=== PATIENT | female | born 1960 | race Caucasian/White ===

== ENCOUNTER 2016-07-26 11:25 | Inpatient (IN) | payer MEDICARE, MEDICAID ==
[2016-07-26] VITALS (14 sets, daily range): BP systolic 129–191; BP diastolic 83–116; PULSE 86–145; RESP 15–26; O2SAT 91–100
[~2016-07-26] VITALS: Ht 157.5 cm; Wt 87.5 kg
[~2016-07-26 11:25] MED LIST: Ondansetron 2 mg/mL 2 mL Inj ONE; Rocuronium 10 mg/mL 5 mL Inj ONE; fentaNYL-PF 50 mCg/mL 2 mL Inj ONE
--- NOTE | 2016-07-26 11:47 | ED.REPORT ---
HPI-Rash / Abscess Date of Service Jul 26, 2016 ED Provider: Dr. Coats Pt is a healthy 56 y/o female presenting to the ED c/o worsening abscess on right buttock onset 1 week ago. She c/o associated pain over the affected area. She denies fever, chills, diaphoresis. She saw her PCP regarding this previously who lanced it. It does not appear to be healing well and pain has increased. Nothing but clear liquid today to eat/drink. Nursing Notes Stated Complaint: ABSCESS ON ABDOMEN Chief Complaint: Skin Rash/Abscess Nursing Notes Reviewed: Yes Allergies: Coded Allergies: No Known Allergies (Unverified , 07/26/16) General Time Seen by MD: 11:46 Chief Complaint Abscess Hx Obtained From: Patient Arrived By: Walk-in Onset Occurred: 1 week ago Symptom Duration: Since onset Location: : Buttock Quality: Painful Severity: Current: Moderate Severity: Maximum: Moderate Past Medical History Past Medical History Denies Past Surgical History None reported Smoking History Unknown if Ever Smoker Ambulatory Status Independent Review of Systems Constitutional: Denies: Chills, Fever Respiratory: Denies: Non-productive cough, Shortness of breath Cardiovascular: Denies: Chest pain, Dyspnea on exertion GI: Denies: Abdominal pain, Nausea, Vomiting Skin: Denies Diaphoresis Complete sys rev & neg: except as marked. Physical Exam Initial Vital Signs Vital Signs (First) Date Time Temp Pulse Resp B/P Pulse Ox O2 Delivery O2 Flow Rate FiO2 07/26/16 11:34 35.4 145 26 91 Room Air 07/26/16 13:11 147/83 Initial VS: Reviewed, Vital signs abnormal Head / Eyes: Atraumatic, Normocephalic, PERRL ENT: Mucous membranes moist, Conjunctiva normal, No scleral icterus Neck: Supple, Full range of motion Respiratory: Breath sounds normal, Clear to auscultation, No respiratory distress Cardiovascular: Regular rate & rhythm, Heart sounds normal, Intact distal pulses Extremities: Vascular intact, Neuro intact, No swelling, No tenderness Neurologic: Alert, Oriented, Nonfocal Psychiatric: Mood/affect normal, Behavior normal, Normal thought content General/Constitutional: Awake, Alert, No acute distress, Cooperative, Not toxic appearing Appearance / Presentation: Positive: Uncomfortable Skin: Atraumatic, Color NL Right buttock perirectal abscess 20 cm x 5 cm which is indurated, erythematous, very tender, extending to the verge of anus. There is an area of previous I&D about the superior aspect with small tag of new packing gauze which I removed. Interpretation & Diagnostics Lab Results Interpretation Result Diagram: 07/26/16 1208 07/26/16 1208 Test 07/26/16 12:08 07/26/16 12:16 White Blood Count 11.3th/mm3 (3.8-10.1) Red Blood Count 5.01mil/mm3 (3.90-5.20) Hemoglobin 14.6g/dL (12.0-15.6) Hematocrit 42.7% (35.0-46.0) Mean Corpuscular Volume 85.2fL (81-100) Mean Corpuscular Hemoglobin 29.1pg (27.0-35.0) Mean Corpuscular Hemoglobin Concent 34.2% (32.0-37.0) Red Cell Distribution Width 12.9% (12.3-15.4) Platelet Count 301bil/L (150-400) Neutrophils (%) (Auto) 78.0% (40-74) Lymphocytes (%) (Auto) 11.5% (14-46) Monocytes (%) (Auto) 7.0% (4-12) Eosinophils (%) (Auto) 1.1% (0-5) Basophils (%) (Auto) 0.4% (0-3) Sodium Level 127mEq/L (134-144) Potassium Level 4.4mEq/L (3.5-5.2) Chloride Level 88mEq/L (97-108) Carbon Dioxide Level 21mmol/L (18-29) Blood Urea Nitrogen 15mg/dL (6-24) Creatinine 1.09mg/dL (0.57-1.00) Estimat Glomerular Filtration Rate 74mL/min (>59) Glucose Level 466mg/dL (60-99) Calcium Level 9.4mg/dL (8.5-10.1) Total Bilirubin 0.5mg/dL (0.0-1.2) Aspartate Amino Transf (AST/SGOT) 25U/L (0-50) Alanine Aminotransferase (ALT/SGPT) 25U/L (0-32) Alkaline Phosphatase 68U/L (25-150) Total Protein 8.1g/dL (6.4-8.4) Albumin 3.4g/dL (3.4-5.0) Lipase 15U/L (13-60) Hold Forbes Top Tube Received (Received) Re-Eval/Medical Decision Re-Evaluation/Progress : Time of Eval: 12:00 Re-Evaluation/Progress Note: Pt rechecked. Informed pt of need for admission for surgical intervention. Pt understands and agrees with plan for admission. All questions addressed. Consultation #1: Referral / Consult Name: Tejas Smith MD Consulted With: Surgeon Call Returned at: 12:00 Clay Artist: Will see patient, Agrees with eval, Agrees with plan Note: Will perform surgery later today or possibly early tomorrow. Requests be admitted to hospitalist for now. Consultation #2: Referral / Consult Name: Flakita Kumar DO Consulted With: Hospitalist Call Returned at: 13:20 Clay Artist: Accepts admit Counseled Regarding: Diagnosis, Lab results, Need for admission Discharge & Departure Impression: Primary Impression: Perirectal abscess Additional Impression: Hyperglycemia Disposition: ADMITTED TO HOSPITAL Discharge Condition All VS Reviewed: Yes Condition: Stable Scribe Attestation Portions of this note were transcribed by Trell Rivero. I, Dr. Coats personally performed the history, physical exam and medical decision-making; I reviewed and confirmed the accuracy of the information in the transcribed note. Signed by Trell Rivero and James Allison, 07/26/16 - 1200 Porter Coats MD Jul 26, 2016 11:47 TRELL RIVERO Jul 26, 2016 11:52
[2016-07-26] MEDS ORDERED: 0.9% Sodium Chloride 1,000 ML IV ONE (12:08)
[2016-07-26] MEDS ORDERED: Ondansetron 2 mg/mL 2 mL Inj IVPUSH PRN ×5 (12:10→16:15)
[2016-07-26] MEDS ORDERED: HYDROmorphone 1 mg/mL Inj IVPUSH PRN (12:10)
[2016-07-26] MEDS ORDERED: Acetaminophen IV 1,000 MG in IV Premix 1 EACH IV ONE (12:15)
[2016-07-26 12:28] LABS: BASOPHILS % (AUTO) 0.4 % (0-3); EOSINOPHILS % (AUTO) 1.1 % (0-5); Mean Corpuscular Hemoglobin 29.1 pg (27.0-35.0); Mean Corpuscular Volume 85.2 fL (81-100); Platelet Count 301 bil/L (150-400)
[2016-07-26] MEDS ORDERED: SULF1TAB7 PO (13:54)
[2016-07-26] MEDS ORDERED: IBUP200C11 PO (13:54)
[2016-07-26] MEDS ORDERED: HOLY BASIL PO (13:54)
[2016-07-26] MEDS ORDERED: TRAM-14 PO (13:54)
[2016-07-26] MEDS ORDERED: Alum-Mag Hydrox-Simeth 30 mL Suspension PO PRN ×2 (13:55→15:05)
--- NOTE | 2016-07-26 14:16 | NUR ---
Admit nurse note Admission assessment completed in the ER. Pt. denies complaints at present, her pain is tolerable at stated 3/10 and she transfers to and from stretcher easily as long as she does not sit directly on her rectum. Pt. confirms NKA and health history. Pt. oriented to room, call dockery and fall precautions. Report given to Tc TRUONG.
[2016-07-26] MEDS ORDERED: Lactated Ringer's 1,000 ML IV ONE ×2 (14:28→15:24)
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
[2016-07-26] MEDS ORDERED: Polyethylene Glycol (PEG) 17 Gm Powder PO PRN (15:05)
[2016-07-26] MEDS ORDERED: Insulin Human REGular Inj 100 UNIT in 0.9% Sodium Chloride-Pha MIX 100 ML IV SCH (15:19)
[2016-07-26] MEDS ORDERED: Labetalol 5 mg/mL 4 mL Inj IVPUSH ONE (15:20)
--- NOTE | 2016-07-26 15:25 | PCM.ADCARE ---
Advance Care Planning Note Parties in Attendance: Patient, her mother (Edilia), and aunt (Yajaira Rajput) and Dr. Kumar Decisional Capacity: Good Subjective: goals of care Plan: Patient is currently aware of her medical condition. Patient wishes to be placed on full CODE STATUS. Patient agrees to have CPR and intubation with mechanical ventilation, IV fluids, antibiotics, and blood transfusions. CODE STATUS: Full code Time Spent Adv.Care Plannin minutes Flakita Kumar DO Jul 26, 2016 14:50
--- NOTE | 2016-07-26 15:42 | NUR ---
Admit to [facility] Pt. admitted [facility] at 1425 in stable condition. Family present. Pt. walked from [facility] to hospital bed. Steady gait. Oriented to room and call light. C/o 4/10 pain. States it is tolerable. Vitals taken, pt. hypertensive 180s/100s. present and aware. BG elevated in ED, so we rechecked it at 1515. BG 316. Dr. Smith called to order an insulin gtt to be set up. Areli from OR called at 1520 for report on pt. Transport came at 1525 to transfer pt. to OR. Pharmacy to tube insulin to OR to be set up.
[2016-07-26] MEDS ORDERED: CeFAZolin Inj 3 GM in IV Premix 1 EACH IV ONE (16:05)
[2016-07-26] MEDS ORDERED: Lactated Ringer's 500 ML IV PRN (16:11)
[2016-07-26] MEDS ORDERED: Lactated Ringer's 1,000 ML IV SCH (16:11)
[2016-07-26] MEDS ORDERED: Dexamethasone 4 mg/mL Inj IVPUSH PRN (16:15)
[2016-07-26] MEDS ORDERED: fentaNYL-PF 50 mCg/mL 2 mL Inj IVPUSH PRN (16:15)
[2016-07-26] MEDS ORDERED: EPHEDrine Sulfate 50 mg/mL Inj IVPUSH PRN (16:15)
[2016-07-26] MEDS ORDERED: hydrALAZINE 20 mg/mL Inj IVPUSH PRN (16:15)
[2016-07-26] MEDS ORDERED: Labetalol 5 mg/mL 4 mL Inj IV PRN (16:15)
[2016-07-26] MEDS ORDERED: Phenylephrine 10,000 mCg/mL Inj IVPUSH PRN (16:15)
[2016-07-26] MEDS ORDERED: Atropine 0.4 mg/mL Inj IVPUSH PRN (16:15)
--- NOTE | 2016-07-26 16:54 | PCM.ANEP1 ---
Post Anesthesia Phase 1 PACU Phase 1 Assessment Vital Signs Vital Signs Date Time Temp Pulse Resp B/P Pulse Ox O2 Delivery O2 Flow Rate FiO2 07/26/16 14:26 36.7 100 16 182/102 96 Room Air 07/26/16 13:11 103 16 147/83 95 Room Air 07/26/16 11:34 35.4 145 26 91 Room Air Anesthetic Administered: GA Level of Alertness: Awake, talking MARTINEZ's with Equal Strength: Yes Pain: Yes (paiun with movement) Nausea or Vomiting: No Oxygen Delivery: Simple Mask Lungs: Normal Air Movement Guillaume Arteaga MD Jul 26, 2016 16:54
[2016-07-26] MEDS ORDERED: fentaNYL-PF 50 mCg/mL 2 mL Inj ONE (17:03)
[2016-07-26] MEDS: HYDROmorphone 1 mg/mL Inj IVPUSH PRN ×3 (17:12→20:13)
[2016-07-26] MEDS ORDERED: Lactated Ringer's 500 ML IV ONE (18:00)
[2016-07-26] MEDS ORDERED: Ampicillin-Sulbactam Inj 1,500 MG in 0.9% Sodium Chloride 50 ML IV SCH (18:00)
[2016-07-26] MEDS: 0.9% Sodium Chloride 1,000 ML IV SCH ×2 (18:59→23:54)
[2016-07-26] MEDS: Acetaminophen IV 1,000 MG in IV Premix 1 EACH IV PRN (22:10)
--- NOTE | 2016-07-26 22:37 | CONS ---
[address] [address] CONSULTATION REPORT PATIENT: YADI BENITEZ : 1960 MR#: [id number] ADMIT: 07/26/2016 JOB ID: [id number] DATE OF SERVICE: 07/26/2016 CHIEF COMPLAINT: Right buttock abscess. HISTORY OF PRESENT ILLNESS: The patient is a 56-year-old female, who presented to the emergency department today due to a worsening right buttock abscess. The patient states that this has been going on for the past 10 days or so. It spontaneously drained this past Saturday, which is four days ago, and then she presented to the urgent care at [place] and underwent an I and D two days ago. The patient was given a shot of IV antibiotics, and she was maintained on p.o. Bactrim. Patient returned to the urgent care today for a followup and was quickly referred to the emergency department. The patient complains of continuous drainage and pain. I was consulted by Dr. Porter Coats for evaluation. PAST MEDICAL HISTORY: Left femur surgery, left knee surgery, and left hip surgery. MEDICATIONS: Advil and Bactrim. ALLERGIES: None. SOCIAL HISTORY: The patient lives in [place]. She is single. She does not have any children. She is on disability. FAMILY HISTORY: Positive for diabetes and heart disease. REVIEW OF SYSTEMS: Positive for the pain and draining right buttock abscess. The patient denies any fevers or chills. PHYSICAL EXAMINATION: The patient is currently in the emergency department [facility] in no acute distress. Her BMI is 58.5, her temperature is 35.4, her pulse is 145. Head is normocephalic, atraumatic. There is no scleral icterus. Neck is supple. Heart is regular rate. Lungs are clear. Abdomen is obese, but soft. INCOMPLETE DICTATION: DICTATION ENDS HERE.
--- NOTE | 2016-07-26 22:43 | CONS ---
[address] [address] CONSULTATION REPORT PATIENT: YADI BENITEZ : 1960 MR#: [id number] ADMIT: 07/26/2016 JOB ID: [id number] DATE OF SERVICE: 07/26/2016 CHIEF COMPLAINT: Right buttock abscess. HISTORY OF PRESENT ILLNESS: The patient is a 56-year-old female who presented to the emergency department with a right buttock abscess. It has been going on for the past 10 days or so, and it has spontaneously drained approximately four days ago. Two days ago she presented to the urgent care at [place] and she underwent an I and D there and she was given a dose of ceftriaxone and was maintained on Bactrim p.o. Patient returned to the urgent care this morning for a followup and was quickly referred to the emergency department. I was consulted by Dr. Porter Coats for evaluation. The patient reports persistent drainage of purulence and worsening pain. PAST MEDICAL HISTORY: Includes left femur surgery, left knee surgery and left hip surgery. MEDICATIONS: 1. Advil. 2. Bactrim. ALLERGIES: None. SOCIAL HISTORY: The patient lives in [place]. She is single. She does not have any children. She is on disability. FAMILY HISTORY: Positive for diabetes and heart disease. REVIEW OF SYSTEMS: Positive for the draining right buttock abscess. She denies any fevers or chills. PHYSICAL EXAMINATION: The patient is currently on the emergency department [facility] in no acute distress. Her BMI is 58.5, she is afebrile with a temperature of 35.4. Head is normocephalic, atraumatic. There is no scleral icterus. Neck is supple. Heart is regular rate. Lungs are clear. Abdomen is obese, but soft and nontender. Extremities show no clubbing and no cyanosis. Neurologically, she is awake, and appropriate. Examination of her right buttock shows there is a small hole with obvious drainage of brown purulence with surrounding induration and erythema and tenderness. It is at least the size of a silver dollar. LABORATORY EXAMINATION: Today shows a white blood count of 11.3. ASSESSMENT AND PLAN: This is a 56-year-old female with a worsening right medial buttock abscess. She has failed incision and drainage two days ago by urgent care. We will take the patient to the operating room today for a wider I and D today. This was explained to the patient and the patient understands and wishes to proceed. She should receive IV antibiotics as well.
[2016-07-27 00:32] VITALS: BP 147/78; PULSE 94; RESP 20; O2SAT 99
--- NOTE | 2016-07-27 02:22 | OP ---
[address] [address] OPERATIVE REPORT PATIENT: YADI BENITEZ : 1960 MR#: [id number] ADMIT: 07/26/2016 JOB ID: [id number] DATE OF SURGERY: 07/26/2016 SURGEON: Tejas Smith MD. CONE PICKER: Aaln Abel, resident. ANESTHESIA: General. PREOPERATIVE DIAGNOSIS(ES): Right medial buttocks abscess. POSTOPERATIVE DIAGNOSIS(ES): Right medial buttocks abscess. PRINCIPAL PROCEDURE: Incision and drainage of right medial buttocks abscess. INDICATION FOR PROCEDURE: The patient is a 56-year-old female who has had a right medial buttocks abscess for the past 10 days or so. This was I and D'd two days ago at urgent care. PRINCIPAL FINDING: Fairly large right-sided medial buttocks abscess. The entire incision measured at least 12 cm. PROCEDURE COURSE: The patient was brought to the operating table and was provided with general anesthesia. The patient was given IV antibiotics and SCDs. A time-out was performed. Patient's sugar earlier today was in the 400s, and it had come down to the 300s just before the operation. A time-out was performed. Patient's perianal and buttocks region was then prepped and draped in the usual sterile fashion. Next, using a syringe and 18-gauge needle, aspiration of the indurated right medial buttocks region was performed and aspirated pus was then sent for cultures. Next, at the prior I and D site we extended the incision in a longitudinal fashion to encompass the entire indurated area. The entire incision was approximately 12 cm in length. The abscess cavity was unroofed. Additional probing with finger and also using a Leandra clamp was performed to make sure that there was no undrained abscess. Copious irrigation with saline was performed and hemostasis was controlled using cautery. A finger was placed into the anal canal and the abscess cavity did not communicate with the anal canal. Next, the wound cavity itself was then packed with Kerlix gauze soaked in half-strength Betadine. A sterile dressing was then placed over the wound. By the end of procedure, needle counts and sponge counts were correct. The patient was then extubated and taken back to the recovery room in stable satisfactory condition.
[2016-07-27] MEDS: Ampicillin-Sulbactam Inj 1,500 MG in 0.9% Sodium Chloride 50 ML IV SCH ×4 (03:01→21:21)
[2016-07-27] MEDS: HYDROmorphone 1 mg/mL Inj IVPUSH PRN ×4 (03:10→17:27)
--- NOTE | 2016-07-27 03:42 | NUR ---
Activity/BG/ Pain Pain manageable with available PRN's. Patient able to ambulate without complaint, besides a lone complaint of dizziness when changing ABD pad of dressing. BG within range for 6 consecutive hours. Have been monitoring it every other hour, after 4 consecutive numbers within range. Dressing has moderate serous drainage this shift.
[2016-07-27] MEDS: Acetaminophen IV 1,000 MG in IV Premix 1 EACH IV PRN (04:29)
[2016-07-27 05:55] VITALS: BP 139/84; PULSE 87; RESP 20; O2SAT 97
[2016-07-27 06:45] LABS: Mean Corpuscular Hemoglobin 29.1 pg (27.0-35.0); Mean Corpuscular Volume 87.9 fL (81-100)
--- NOTE | 2016-07-27 06:59 | PCM.ANEP2 ---
Post Anesthesia Evaluation ASA/CMS Post Anesthesia VS in Patient's Normal Range?: Yes Resp Stable; Airway Patent?: Yes CV Function & Hydration Stable: Yes Mental Status Recovered?: Yes Pain control Satisfactory?: Yes N/V Control Satisfactory?: Yes Guillaume Arteaga MD Jul 27, 2016 06:59
--- NOTE | 2016-07-27 10:00 | PCM.PNSURG ---
Subjective Date of Service: Jul 27, 2016 Date of Service: Jul 27, 2016 Visit Information: Reason for Visit Perirectal Abscess Surgery/Surgery Date Post-Op Day # Date of Admission: Jul 26, 2016 at 13:51 Hospital Day # Subjective: Patient states pain well controlled for now. Denies nausea, vomiting, constipation, diarrhea, chest pain, shortness of breath. Objective Objective GEN: Patient was awake, alert, responding appropriately to questions HEENT: Pupils equal round and reactive to light, extraocular eye muscles intact , Neck soft supple, trachea midline, nomocephalic/atraumatic CV: +S1/S2, regular rate and rhythm, no murmurs auscultated Respiratory: CTAB, no wheezes, rales, rhonchi GI: +bowel sounds x4, soft, compressible, nontender to palpation, 1/2 cm perianal abscess EXT: no clubbing, cyanosis, edema Neuro: Cranial nerves II-XII grossly intact Psych: mood and affect were appropriate Incision site was examined and there was minimal drainage, wound open roughly 13 cm x 4 cm x 4 cm with packing and bandaging in place and marginal erythema and edema. several small indurations superior and lateral to incision sites noted. Will coordinate with wound care for a more thorough exam. Vital Sign- Last 8 Hours Date Time Temp Pulse Resp B/P Pulse Ox O2 Delivery O2 Flow Rate FiO2 07/27/16 05:55 36.5 87 20 139/84 97 Room Air Intake and Output- Last 8 Hour 07/27/16 Cumulative From/Thru 07:00 07/26/16 11:34 - 07/27/16 06:44 Intake Total 1091 ml 3441 ml Output Total 0 ml Balance 1091 ml 3441 ml Intake Oral 200 ml 400 ml IV Total 891 ml 3041 ml Output Urine Total 0 ml # Voids 1 1 # Bowel Movements 0 0 Result Diagram: 07/27/16 0558 07/27/16 0558 Assessment & Plan Impression Incision and drainage of right medial buttocks abscess. Problems: Plan The patient is a 56-year-old female who has had a right medial buttocks abscess for the past 10 days or so. This was I&D'd two days ago at urgent care with small stab incision. Continue post I&D management. - IV Dilaudid for dressing change. - IV acetaminophen for now. - Awaiting cx and sensitivities from I&D. Currently on IV Unasyn, however outpatient records at urgent care 07/24/16 shows MRSA positive. Will start IV Vancomycin. - WBC wnl, Wound care following. - Will coordinate with wound care today for detailed examination and plan. Medicine team following. - HA1c 10 .9. admission BS was above 400, on insulin ggt for control. Patient states she is not diabetic and has been under stress lately. Ddx - DM 1/2, Patricia's... - Social work referral. Patient is primary caregiver assisted living to elderly mother. - Diabetic diet. Resuscitation Status: CPR: Attempt Resuscitation Attending Statement: I agree with Dr. Christina's assessment and plan. Abx and Wound Care and blood sugar control. ASHLEY CHRISTINA DO Jul 27, 2016 09:46 Tejas Smith MD Jul 28, 2016 10:16
[2016-07-27 10:29] VITALS: BP 164/83; PULSE 108; RESP 18; O2SAT 98
--- NOTE | 2016-07-27 12:19 | PCM.CONPHA ---
Subjective Reason for Pharmacy Consult: Vancomycin Dosing Objective Vital Signs Date Time Temp Pulse Resp B/P Pulse Ox O2 Delivery O2 Flow Rate FiO2 07/27/16 10:29 36.7 108 18 164/83 98 Room Air 07/27/16 05:55 36.5 87 20 139/84 97 Room Air 07/27/16 00:32 36.5 94 20 147/78 99 Room Air 07/26/16 20:08 36.6 101 16 157/98 Nasal Cannula 2.00 100 07/26/16 18:23 36.3 100 18 191/116 Nasal Cannula 2.00 98 07/26/16 18:00 91 19 169/97 100 Nasal Cannula 3 07/26/16 17:50 88 15 184/87 100 Nasal Cannula 3 07/26/16 17:40 86 16 178/87 100 Nasal Cannula 3 07/26/16 17:30 88 20 164/89 100 Nasal Cannula 3 07/26/16 17:20 86 15 152/88 97 Nasal Cannula 3 07/26/16 17:10 91 20 158/90 98 Room Air 07/26/16 17:00 92 17 136/100 98 Room Air 07/26/16 16:55 93 16 129/86 98 Simple Mask 8 07/26/16 16:54 Simple Mask 07/26/16 16:50 36.1 91 18 146/88 98 Simple Mask 8 07/26/16 14:26 36.7 100 16 182/102 96 Room Air 07/26/16 13:11 103 16 147/83 95 Room Air Intake and Output 07/25/16 07/26/16 07/27/16 00:00 00:00 00:00 Intake Total 2350 ml Output Total 0 ml Balance 2350 ml Weight (Kilograms): 87.500 Height (Feet): 5 Height (Inches): 2 Test 07/26/16 12:08 07/26/16 12:16 07/27/16 05:58 Neutrophils (%) (Auto) 78.0% (40-74) Lymphocytes (%) (Auto) 11.5% (14-46) Monocytes (%) (Auto) 7.0% (4-12) Eosinophils (%) (Auto) 1.1% (0-5) Basophils (%) (Auto) 0.4% (0-3) Lipase 15U/L (13-60) Hold Forbes Top Tube Received (Received) White Blood Count 8.5th/mm3 (3.8-10.1) Red Blood Count 4.22mil/mm3 (3.90-5.20) Hemoglobin 12.3g/dL (12.0-15.6) Hematocrit 37.1% (35.0-46.0) Mean Corpuscular Volume 87.9fL (81-100) Mean Corpuscular Hemoglobin 29.1pg (27.0-35.0) Mean Corpuscular Hemoglobin Concent 33.2% (32.0-37.0) Red Cell Distribution Width 12.9% (12.3-15.4) Platelet Count 281bil/L (150-400) Sodium Level 136mEq/L (134-144) Potassium Level 4.4mEq/L (3.5-5.2) Chloride Level 99mEq/L (97-108) Carbon Dioxide Level 26mmol/L (18-29) Blood Urea Nitrogen 14mg/dL (6-24) Creatinine 0.70mg/dL (0.57-1.00) Estimat Glomerular Filtration Rate 123mL/min (>59) Glucose Level 158mg/dL (60-99) Calcium Level 8.6mg/dL (8.5-10.1) Total Bilirubin 0.3mg/dL (0.0-1.2) Aspartate Amino Transf (AST/SGOT) 19U/L (0-50) Alanine Aminotransferase (ALT/SGPT) 18U/L (0-32) Alkaline Phosphatase 49U/L (25-150) Total Protein 6.2g/dL (6.4-8.4) Albumin 2.8g/dL (3.4-5.0) Assessment/Plan Assessment/Plan VANCOMYCIN DOSING PER PHARMACY 56 Y/O Female with perirectal abscess and history of MRSA also on Unasyn goal vanco trough: 10-15, scheduled for 07/29 1200 (before 5th dose) vanco dose 1.25G Q 12H pharmacy will follow patient for vanco dosing Maria Ines Castillo Pharm.D Jul 27, 2016 12:19
[2016-07-27] MEDS: Vancomycin Dose per Pharmacist XX SCH (12:57)
[2016-07-27] MEDS: 0.9% Sodium Chloride 1,000 ML IV SCH ×2 (12:59→19:54)
[2016-07-27] MEDS: Vancomycin Inj 1,250 MG in 0.9% Sodium Chloride 250 ML IV SCH (13:01)
--- NOTE | 2016-07-27 13:25 | NUR ---
DM II diagnosis A1C checked this morning r/t high BG levels at admit. Hemoglobin A1C of 10.9. MD present to talk to her about diabetes and treatment. Pt. is very upset and tearful, saying that she doesnt have diabetes and that her high blood sugars are from stress and drinking lots of grape juice. Later, when PA came to address her diabetes, pt. did not want to hear any information and became tearful and upset. I offered to have the intranet specialist come talk with her, but she said she would prefer a friend to come instead. Will continue to monitor readiness for education.
[2016-07-27 15:09] VITALS: BP 154/89; PULSE 98; RESP 18; O2SAT 97
--- NOTE | 2016-07-27 16:02 | NUR ---
Wound Care Wound Care orders received, patient seen at bedside for dressing change. 56 yo female 1 day s/p I&D of right buttock abscess, prior to dressing change nursing administered iv pain medication, pt's disabled mother was present as she is willing to do dressing changes on discharge. I do not believe this is a good plan and patient would be better off with home health for wound care and follow up at the wound center but apparently there are insurance obstacles to this plan. Her right buttock wound is impressive measuring 12 cm in length and 4.5 cm in width and 4 cms in depth the medial border of her wound is less than 4 cms from her anus. The wound is cleaned with saline and gauze and then packed with saline moist kerlix and covered with abd pad held in place with her cotton briefs. Patient tolerated treatment well. Recommend that nursing change wound dressing daily during her hospitalization. Wound will follow up on Saturday if patient is still in house.
--- NOTE | 2016-07-27 16:28 | NUR ---
Social Work Note: Screen Note Data & Assessment: EMR reviewed. Patient is a 56 year old female admitted on 07/26/16 for Perirectal abscess. Pt has no insurance coverage and no primary care physician. Pt lives in [place] with family and is independent at baseline. Pt is currently SBA in her room. Patient is in need of home WC, but does not have insurance. SW call [facility] and they do not have any opening for [facility] at the current time. SW referred patient to [facility] to be accessed fo medicaid. SW to continue to follow if any needs arise. Plan: Anticipated discharge home via POV when medically ready. SW to continue to follow if any needs arise. Roseann Katz, [place], ESTEFANY
--- NOTE | 2016-07-27 16:32 | PCM.PNMED ---
Subjective Date of Service Jul 27, 2016 Subjective Patient was seen and examined at bedside today. Patient denies any chest pain, shortness of breath, nausea, vomiting, diarrhea. Patient states that her pain is well controlled. The patient was rate tearful today as she was told that she does have diabetes. The patient is in a little bit of denial and states that her high blood glucoses secondary to stress even though her hemoglobin A1c is 10. Overnight events: Patient had an incision and drainage yesterday of a gluteal abscess with no complications Exam Vital Signs Vital Sign - Last Date Time Temp Pulse Resp B/P Pulse Ox O2 Delivery O2 Flow Rate FiO2 07/27/16 15:09 36.8 98 18 154/89 97 Room Air 07/26/16 20:08 2.00 100 Intake and Output 07/26/16 07/26/16 07/27/16 Cumulative From/Thru 15:00 23:00 07:00 07/26/16 11:34 - 07/27/16 06:44 Intake Total 1000 ml 1350 ml 1091 ml 3441 ml Output Total 0 ml 0 ml Balance 1000 ml 1350 ml 1091 ml 3441 ml Intake Oral 200 ml 200 ml 400 ml IV Total 1000 ml 1150 ml 891 ml 3041 ml Output Urine Total 0 ml 0 ml # Voids 1 1 # Bowel Movements 0 0 Exam Physical Exam: GEN: Patient was awake, alert, responding appropriately to questions HEENT: Pupils equal round and reactive to light, extraocular eye muscles intact , Neck soft supple, trachea midline, nomocephalic/atraumatic CV: +S1/S2, regular rate and rhythm, no murmurs auscultated Respiratory: CTAB, no wheezes, rales, rhonchi GI: +bowel sounds x4, soft, compressible, nontender to palpation Skin: Gluteal abscess dressing in place mildly blood-tinged EXT: no clubbing, cyanosis, edema Neuro: Cranial nerves II-XII grossly intact Psych: mood and affect were appropriate IVs and Medications Medications Reviewed: Medications were reviewed in detail Lab and Diagnostics Result Diagram: 07/27/1655707/27/16557 Assessment & Plan 56-year-old female with perianal abscess unresponsive to antibiotics and outpatient I&D and hyperglycemia Leukocytosis secondary to Perianal abscess (resolved) -White blood cell count today is 8.5 within normal limits -Continue Unasyn -Start vancomycin -Outpatient records review showed that the patient is MRSA positive -General surgery following Dr. Abel. Case was discussed with Dr. Abel today -Wound care following New onset diabetes -Patient's blood glucose was 466 on admission currently trending down at 158 -Discontinue insulin drip -Accu-Cheks per protocol -Hemoglobin A1c is 10.9 and patient has been diagnosed with diabetes -Start metformin 500 mg twice a day -Diabetes education consult nutrition Hypertension -Current blood pressure is 154/89 improved -1 time dose of IV labetalol 20 mg (07/26/16) -Start lisinopril 5 mg daily -Continue to monitor Hyponatremia (resolved) -Patient's sodium is currently 136 -Discontinue IV fluids -Continue to monitor Obesity -Nutrition consult -Continue diabetic diet Diet: Diabetic diet DVT prophylaxis: Ambulation SCD's Disposition: The patient has a gluteal abscess which is MRSA positive. The patient has also recently been diagnosed with diabetes and hypertension during the stay. The patient is very tearful and reluctant to accept these diagnoses however has been accepting treatment. We will continue to talk and educated the patient. The patient does have some concerns that she does not have insurance at this time. Social work is working with the patient and is potentially looking into sources to see if the patient will qualify for Medicaid as a patient will definitely need home health services to assist with dressing changes and wound packing. Code Status: Full code VTE Mechanical Devices: Intermittant Pneumatic CD Resuscitation Status: CPR: Attempt Resuscitation Flakita Kumar DO Jul 27, 2016 16:32
--- NOTE | 2016-07-27 17:46 | NUR ---
spiritual care: pt request brief visit. pt just rec dinner and declined visit for now.
[2016-07-27 20:12] VITALS: BP 169/92; PULSE 105; RESP 20; O2SAT 98
[2016-07-28] MEDS: HYDROmorphone 1 mg/mL Inj IVPUSH PRN ×2 (01:13→14:40)
[2016-07-28] MEDS: Vancomycin Inj 1,250 MG in 0.9% Sodium Chloride 250 ML IV SCH ×2 (01:17→16:00)
[2016-07-28] MEDS: Ampicillin-Sulbactam Inj 1,500 MG in 0.9% Sodium Chloride 50 ML IV SCH ×4 (03:18→20:33)
--- NOTE | 2016-07-28 03:25 | NUR ---
Pain/Drainage Pt. reported severe pain during one part of the night. IV Dilaudid given which was effective. Pt. fell asleep afterwards. Small amount of drainage coming from buttocks. Will continue to monitor.
[2016-07-28] MEDS: 0.9% Sodium Chloride 1,000 ML IV SCH ×2 (05:54→15:54)
[2016-07-28 06:13] VITALS: BP 152/78; PULSE 87; RESP 18; O2SAT 96
[2016-07-28 07:33] LABS: Mean Corpuscular Hemoglobin 29.7 pg (27.0-35.0)
[2016-07-28] MEDS: Vancomycin Dose per Pharmacist XX SCH (07:35)
--- NOTE | 2016-07-28 08:04 | PCM.PNSURG ---
Subjective Visit Information: Reason for Visit Perirectal Abscess Surgery/Surgery Date Post-Op Day # Date of Admission: Jul 26, 2016 at 13:51 Hospital Day # Subjective: pain control fine, no n/v, was seen by Wound Care yesterday Objective Objective Awake in bed Abd: soft R buttock dressing in place Cx --> likely staph Vital Sign- Last 8 Hours Date Time Temp Pulse Resp B/P Pulse Ox O2 Delivery O2 Flow Rate FiO2 07/28/16 06:13 36.8 87 18 152/78 96 Room Air Intake and Output- Last 8 Hour 07/28/16 Cumulative From/Thru 07:00 07/26/16 11:34 - 07/28/16 06:14 Intake Total 882 ml 5591 ml Output Total 0 ml Balance 882 ml 5591 ml Intake Oral 437 ml 1681 ml IV Total 445 ml 3910 ml Output Urine Total 0 ml # Voids 3 7 # Bowel Movements 2 2 Result Diagram: 07/28/16 0647 07/27/16 0558 Assessment & Plan Impression s/p R buttock abscess I & D DM Problems: Plan Await cx result Need to formulate plan for Wound Care at home Abx Blood sugar control Resuscitation Status: CPR: Attempt Resuscitation Tejas Smith MD Jul 28, 2016 08:04
--- NOTE | 2016-07-28 10:00 | NUR ---
Lisinopril Pt was changed from 5mg to 10mg po of lisinopril. Pt was already given 5mg of lisinopril before the med was increased therefore, gave pt 5mg of the ordered 10mg to equal a total of 10mg of lisinopril .
--- NOTE | 2016-07-28 10:47 | NUR ---
Behavior/acceptance Pt appears to deflect every time the underwriter mortgage loan tries to talk to her about diabetes. This RN gave her handouts that pt would not even look at, instead she states that "I have been under a lot of stress, that's why my blood sugars are high" This RN tried to explain the pathophysiology of diabetes but patient did not believe that her pancreas was not giving her enough insulin to control her blood sugars. Pt was in tears and said that "no one listens to me, I just want to go home" she believes she can just eat the way she has been, continue her walks and that her blood sugars will be fine, despite having an A1C of 10. Explaiend to patient the side effects of high blood sugar would be infection, blindness, kidney failure and neuropathy, pt did not want to hear anything about them though. Will continue to re-approach the subject with patient.
[2016-07-28 14:58] VITALS: BP 149/89; PULSE 105; RESP 20; O2SAT 100
--- NOTE | 2016-07-28 15:14 | PCM.PNMED ---
Subjective Date of Service Jul 28, 2016 Subjective Patient was seen and examined at bedside today. Patient denies any chest pain, shortness of breath, nausea, vomiting. The patient is still in significant denial that she has diabetes and hypertension. Nursing has given the patient some printed materials about diabetes in order to help educate the patient and help her come to evening anchor with this diagnosis. The patient still insists that her elevated blood sugars are secondary to stress however the patient had a hemoglobin A1c of 10.8. During the day the patient did start to have some bouts of diarrhea and C. difficile cultures were sent Overnight events: None Exam Vital Signs Vital Sign - Last Date Time Temp Pulse Resp B/P Pulse Ox O2 Delivery O2 Flow Rate FiO2 07/28/16 14:58 36.7 105 20 149/89 100 Room Air 07/26/16 20:08 2.00 100 Intake and Output 07/27/16 07/27/16 07/28/16 Cumulative From/Thru 15:00 23:00 07:00 07/26/16 11:34 - 07/28/16 06:14 Intake Total 1268 ml 882 ml 5591 ml Output Total 0 ml Balance 1268 ml 882 ml 5591 ml Intake Oral 844 ml 437 ml 1681 ml IV Total 424 ml 445 ml 3910 ml Output Urine Total 0 ml # Voids 3 3 7 # Bowel Movements 2 2 Exam Physical Exam: GEN: Patient was awake, alert, responding appropriately to questions however she was very short with her responses HEENT: Pupils equal round and reactive to light, extraocular eye muscles intact , Neck soft supple, trachea midline, nomocephalic/atraumatic CV: +S1/S2, regular rate and rhythm, no murmurs auscultated Respiratory: CTAB, no wheezes, rales, rhonchi GI: +bowel sounds x4, soft, compressible, nontender to palpation Skin: Sacral abscess wounds were covered with dressing had moderate drainage EXT: no clubbing, cyanosis, edema Neuro: Cranial nerves II-XII grossly intact Psych: mood and affect were irritated IVs and Medications Medications Reviewed: Medications were reviewed in detail Lab and Diagnostics Result Diagram: 07/28/16 0647 07/28/1647 Assessment & Plan 56-year-old female with perianal abscess unresponsive to antibiotics and outpatient I&D and hyperglycemia Leukocytosis secondary to Perianal abscess (resolved) -White blood cell count today is 8.5 within normal limits -Continue Unasyn -Continue vancomycin -Outpatient records review showed that the patient is MRSA positive -Patient's case was discussed today with Dr. Smith of general surgery -Wound care following New onset diabetes -Patient's blood glucose was 466 on admission hemoglobin A1c is 10.9 -Discontinue insulin drip -Accu-Cheks per protocol -Continue metformin 500 mg twice a day -Diabetes education consult nutrition -Accu-Cheks before meals and at bedtime Hypertension -Current blood pressure is 154/89 improved -1 time dose of IV labetalol 20 mg (07/26/16) -Increase lisinopril to 10 mg daily -Continue to monitor Diarrhea -C. difficile precautions -Stool sent for rule out C. difficile Hyponatremia (resolved) -Patient's sodium is currently 136 -Continue to monitor Obesity -Nutrition consult -Continue diabetic diet Diet: Diabetic diet DVT prophylaxis: Ambulation SCD's Disposition: The patient is still in denial with her diabetes and hypertension. We have been trying to encourage the patient to assist us with taking her diabetes medications in order for better blood glucose control. The patient still seems very reluctant and it has been explained to the patient that by controlling her blood glucose helps with wound healing. The patient does have some social concerns as well and social workers following as a patient does not have insurance and it is very critical that the patient have adequate wound care. piece dye worker is working with the patient and may be able to obtain healthcare insurance but this will not be taken care of her until Saturday. I discussed this with Dr. Smith who agrees that the patient should remain inpatient in order to care for her wounds at this time. Code Status: Full code VTE Mechanical Devices: Intermittant Pneumatic CD Resuscitation Status: CPR: Attempt Resuscitation Flakita Kumar DO Jul 28, 2016 15:14
--- NOTE | 2016-07-28 16:35 | NUR ---
Diabetes Education. Pt. tearful, not ready to discuss her new diagnosis, which she refutes at this time. Will follow-up Saturday to assess readiness to accept education.
[2016-07-28 20:23] VITALS: BP 171/89; PULSE 104; RESP 18; O2SAT 98
[2016-07-28 23:13] LABS: APPEARANCE,URINE CLEAR (CLEAR,HAZY); COLOR,URINE YELLOW (YELLOW)
[2016-07-28 23:14] LABS: OCCULT BLOOD,URINE NEGATIVE (NEGATIVE); UROBILINOGEN,URINE NORMAL (NORMAL)
[2016-07-29] MEDS: 0.9% Sodium Chloride 1,000 ML IV SCH ×3 (02:04→21:54)
[2016-07-29] MEDS: Vancomycin Inj 1,250 MG in 0.9% Sodium Chloride 250 ML IV SCH ×2 (02:04→14:35)
[2016-07-29] MEDS: Ampicillin-Sulbactam Inj 1,500 MG in 0.9% Sodium Chloride 50 ML IV SCH ×4 (04:04→23:55)
--- NOTE | 2016-07-29 04:21 | NUR ---
BG/Denial/pain Pt had an HS bg level of 212. "It is only that way because I am under a lot stress." "I told them that." Pt continues to believe her increase in blood glucose is due to stressor in her life. "I have to get home to my 19 year old cat." [place] [facility] [place] pt had discomfort in her hip/legs "from pins in my hip". Refused all pain meds. Care ongoing.
[2016-07-29 06:34] VITALS: BP 184/103; PULSE 111; RESP 18; O2SAT 99
--- NOTE | 2016-07-29 06:45 | NUR ---
Hypertension BP 184/103 hr 111 asymptomatic. Denies lightheadedness and dizziness. "It's just stress, I don't want to be here." Notified Dr. Moore and he ordered to give 0830 dose of Lisinopril 10mg now. Care ongoing.
[2016-07-29] MEDS ORDERED: Glucose 40% Oral Gel 15 Gm Tube PO PRN (08:05)
[2016-07-29] MEDS: Vancomycin Dose per Pharmacist XX SCH (08:30)
--- NOTE | 2016-07-29 08:48 | PCM.PNSURG ---
Subjective Visit Information: Reason for Visit Perirectal Abscess Surgery/Surgery Date Post-Op Day # Date of Admission: Jul 26, 2016 at 13:51 Hospital Day # Subjective: having BM's, dressing changed yesterday by nursing, pain control adequate Objective Objective Awake in bed R buttock dressing in place Culture --> MRSA Vital Sign- Last 8 Hours Date Time Temp Pulse Resp B/P Pulse Ox O2 Delivery O2 Flow Rate FiO2 07/29/16 06:34 36.7 111 18 184/103 99 Room Air Intake and Output- Last 8 Hour 07/29/16 Cumulative From/Thru 07:00 07/26/16 11:34 - 07/29/16 06:52 Intake Total 983 ml 8036 ml Output Total 600 ml 604 ml Balance 383 ml 7432 ml Intake Oral 400 ml 3103 ml IV Total 573 ml 4923 ml Tube Irrigant 10 ml 10 ml Output Urine Total 600 ml 600 ml Stool Total 4 ml # Voids 10 # Bowel Movements 2 Result Diagram: 07/28/16 0647 07/29/16 0620 Assessment & Plan Impression R buttock abscess s/p I & D MRSA Problems: Plan Continue abx and dressing change Wound Care Nurse to see tomorrow Formulate plan for discharge and follow-up. Resuscitation Status: CPR: Attempt Resuscitation Tejas Smith MD Jul 29, 2016 08:47
[2016-07-29 08:55] VITALS: BP 171/101
[2016-07-29] MEDS ORDERED: Vancomycin Serum Trough XX ONE (12:00)
[2016-07-29] MEDS: Insulin LISPRO 300 Unit/3 mL Inj SUBQ SCH ×3 (12:41→22:00)
[2016-07-29] MEDS ORDERED: Labetalol 5 mg/mL 4 mL Inj IVPUSH ONE (12:45)
[2016-07-29] MEDS: HYDROmorphone 1 mg/mL Inj IVPUSH PRN (12:52)
--- NOTE | 2016-07-29 12:52 | PCM.PNMED ---
Subjective Date of Service Jul 29, 2016 Subjective Patient was seen and examined at bedside today. Patient denies any chest pain, shortness of breath, nausea, vomiting, diarrhea. Patient was a little more open today with her mother and aunt in the room and was more willing to talk about controlling her blood glucose and her high blood pressure. Patient still has some reservations about being diagnosed with diabetes and high pressure, but seems to be a little more accepting. Overnight events: Patient had a few hypertensive episodes Exam Vital Signs Vital Sign - Last Date Time Temp Pulse Resp B/P Pulse Ox O2 Delivery O2 Flow Rate FiO2 07/29/16 08:55 171/101 07/29/16 06:34 36.7 111 18 99 Room Air 07/26/16 20:08 2.00 100 Intake and Output 07/28/16 07/28/16 07/29/16 Cumulative From/Thru 15:00 23:00 07:00 07/26/16 11:34 - 07/29/16 06:52 Intake Total 1462 ml 983 ml 8036 ml Output Total 4 ml 600 ml 604 ml Balance 1458 ml 383 ml 7432 ml Intake Oral 1022 ml 400 ml 3103 ml IV Total 440 ml 573 ml 4923 ml Tube Irrigant 10 ml 10 ml Output Urine Total 600 ml 600 ml Stool Total 4 ml 4 ml # Voids 3 10 # Bowel Movements 2 Exam Physical Exam: GEN: Patient was awake, alert, responding appropriately to questions HEENT: Pupils equal round and reactive to light, extraocular eye muscles intact , Neck soft supple, trachea midline, nomocephalic/atraumatic CV: +S1/S2, regular rate and rhythm, no murmurs auscultated Respiratory: CTAB, no wheezes, rales, rhonchi GI: +bowel sounds x4, soft, compressible, nontender to palpation, gluteal abscess wound dressing clean dry and intact EXT: no clubbing, cyanosis, edema Neuro: Cranial nerves II-XII grossly intact Psych: mood and affect were appropriate IVs and Medications Medications Reviewed: Medications were reviewed in detail Lab and Diagnostics Result Diagram: 07/28/1647 07/29/16 0620 Assessment & Plan 56-year-old female with perianal abscess unresponsive to antibiotics and outpatient I&D and hyperglycemia Leukocytosis secondary to Perianal abscess (resolved) -White blood cell count today is 8.5 within normal limits -Continue Unasyn -Continue vancomycin -Outpatient records review showed that the patient is MRSA positive -Patient's case was discussed today with Dr. Smith of general surgery -Wound care following New onset diabetes (uncontrolled) -Patient's blood glucose was 466 on admission hemoglobin A1c is 10.9 -Discontinue insulin drip -Accu-Cheks per protocol -Continue metformin 500 mg twice a day -Start Low-dose insulin sliding scale -Start Glipizide 5 mg twice a day -Diabetes education consult nutrition -Accu-Cheks before meals and at bedtime Hypertension -Current blood pressure is 171/101 -1 time dose of IV labetalol 20 mg (07/26/16, 07/29/16) -Increase lisinopril to 40 mg daily -Start metoprolol 50 mg twice a day -Continue to monitor Diarrhea (resolved) -C. difficile precautions -Stool sent for rule out C. difficile Hyponatremia (resolved) -Patient's sodium is currently 136 -Continue to monitor Obesity -Nutrition consult -Continue diabetic diet Diet: Diabetic diet DVT prophylaxis: Ambulation SCD's Disposition: The patient is still in denial with her diabetes and hypertension with her mother in the room seemed to be more open to managing her diabetes and hypertension. The patient has been started on metformin and glipizide which are both $4 prescriptions the goal is to control the patient's blood glucose with these 2 medications and hopefully she will not have to go on insulin. The patient has also been diagnosed with hypertension and metoprolol has been added to help control the patient's hypertension and tachycardia. The patient's wound abscesses seem to be healing well the case is discussed with Dr. Smith ( general surgery) who agrees that the patient seems to be progressing well. The patient should be ready for discharge the next 1-2 days. Code Status: Full code VTE Mechanical Devices: Intermittant Pneumatic CD Resuscitation Status: CPR: Attempt Resuscitation Flakita Kumar DO Jul 29, 2016 12:52
[2016-07-29] MEDS ORDERED: MeTOProlol 1 mg/mL 5 mL Inj IVPUSH ONE (13:10)
[2016-07-29 15:54] VITALS: BP 159/82; PULSE 84; RESP 18; O2SAT 99
--- NOTE | 2016-07-29 16:03 | NUR ---
Social Work: Continued discharge Planning Data & Assessment: EMR reviewed. Patient is a 56 y/o female on her third day of hospitalization. Patient admitted for perirectal abscess per H&P. Patient is not medically stable for discharge. SW met with patient to discuss discharge planning. Patient understands that she will need wound care breanna discharge, but she is self pay. Patient is in agreement with have [facility] apply for emergency medicaid on her behalf. Patient states that she has someone that ill be able to bring her to the [facility] if she receives emergency Medicaid. SW will follow-up with [facility] on 07/30/16 about Emergency Medicaid application. SW will continue to follow and assist patient throughout stay. Plan: Patient will likely discharge home and go to the [facility] for wound care if approved for Medicaid. SW will continue to follow and assist patient throughout stay. Roseann Katz LMSW, ACMartha
--- NOTE | 2016-07-29 18:00 | NUR ---
wound right buttock wound, tissue appears healthy, pink/bleeding, some purelant drainage, last BG 147, pt seems to be accepting that she is diabetic and will need medicine to control her BG levels
[2016-07-29 20:30] VITALS: BP 159/79; PULSE 103; RESP 24
[2016-07-30] MEDS: Vancomycin Inj 1,250 MG in 0.9% Sodium Chloride 250 ML IV SCH ×2 (03:03→15:42)
--- NOTE | 2016-07-30 04:04 | NUR ---
Dressing Change On entering room for initial assessment, patient standing at bedside needing a dressing change due to bowel movement. Wet to dry dressing change performed. Patient tolerated dressing change well. Patient denied needing any pain medication. VSS. Call light within reach. Care continues.
[2016-07-30 05:26] VITALS: BP 180/85; PULSE 89; RESP 20; O2SAT 100
[2016-07-30] MEDS: Ampicillin-Sulbactam Inj 1,500 MG in 0.9% Sodium Chloride 50 ML IV SCH ×3 (06:04→20:32)
[2016-07-30] MEDS: 0.9% Sodium Chloride 1,000 ML IV SCH ×3 (07:54→23:36)
[2016-07-30] MEDS: Insulin LISPRO 300 Unit/3 mL Inj SUBQ SCH ×4 (08:00→22:00)
[2016-07-30] MEDS: Vancomycin Dose per Pharmacist XX SCH (08:30)
[2016-07-30 08:40] VITALS: BP 160/93; PULSE 85
--- NOTE | 2016-07-30 08:53 | NUR ---
Medication Lisinopril held d/t pt complaint of dry cough. MD notified and will address. Care continues.
--- NOTE | 2016-07-30 09:00 | NUR ---
Dressing change Pt's dressing became soiled after using the rest room. Wet to dry kerlix dressing was placed with an ABD over top. Brief put on to hold dressing in place as the pt doesn't like tape placed on her buttocks. Will continue to monitor.
--- NOTE | 2016-07-30 10:08 | NUR ---
Wound Care Patient seen at bedside for dressing change right buttock wound. Wound is clean and without erythema, drainage is minimal. Measures 12 cm L x 3.5 cm W x 2 cm D. Redressed with ns moist kerlix packing and abd pad held in place with brief. Daily packing of this wound will be challenging for family in outpatient setting, will follow up at wound center for continued wound care on discharge.
[2016-07-30] MEDS: HYDROmorphone 1 mg/mL Inj IVPUSH PRN (10:11)
--- NOTE | 2016-07-30 11:40 | NUR ---
Social Work-readiness for discharge: Data:EMR reviewed. Pt is on day 4 of hospitalization for perirectal abscess. Pt is not medically stable anticipate 1-2. Per MD, pt will need wound care at discharge. Pt does not have insurance. SW called [facility] and left another message. Per [facility] note from last week, pt was unwilling to provide further information and case was denied. SW explained pt will need to be able to provide information, pt willing to do this. SW awaiting a return call for [facility]. Pt states she lives with her mother. SW will continue to follow. Assessment:Pt who is independent at baseline. Plan:Pt to discharge home when medically stable via POV. Pt will need wound care at discharge and does not currently have any insurance. SW left message with [facility]. SW will continue to follow. ALICIA Velez Addendum: 07/30/16 at 1146 by MUSHTAQ HARDIN GABRIELLE also discussed DPOA/ advanced directive, pt agreeable to information which has been provided. ALICIA Velez Addendum: 07/30/16 at 1425 by MUSHTAQ HARDIN SW left another message for [facility]. GABRIELLE will continue to follow. ALICIA Velez
--- NOTE | 2016-07-30 11:51 | NUR ---
NUTRITION ASSESSMENT: ASSESS: 56YO F admit with perirectal abscess, wound care following, +MRSA. Diarrhea, stool sample sent to r/o C.Diff. New Diabetes Diagnosis PMHX:Reviewed DIET: Diabetic. PO 100% most meals. LABS: Glu 115, A1c 10.8, Alb 3.0 MEDS: Initiation Metformin 500mg BID, glipizide GI: +BM WEIGHT: 87.5kg BMI: 37.7 EST.NEEDS: OBESITY/WOUND (22-25kcal/kg;1.5-1.8g/kg pro) Kcal: 8679-1197 Pro: 70-80g NUTRITION DIAGNOSIS: (1) Altered nutrition related laboratory values related to new diabetes diagnosis as evidenced by A1c 10.8. INTERVENTION: (1) Hi protein Ensure added nightly. (2) Will re-attempt diabetes education, consult [facility] RN to obtain glucometer for pt. MONITOR/EVALUATE: PO intake, labs, wound care notes, GI, diabetes education needs. F/U per moderate risk. Addendum: 07/30/16 at [address] DIET EDUCATION Provided diabetes diet basics, information re outpatient nutrition program, which pt reports she is not interested in attending at this time. Receptive to diet information, reports attending nutrition classes with mother. [facility] RN faxed re obtaining glucometer for pt. Education packet left with pt.
--- NOTE | 2016-07-30 14:24 | PCM.PNSURG ---
Subjective Date of Service: Jul 30, 2016 Date of Service: Jul 30, 2016 Visit Information: Reason for Visit Perirectal Abscess Surgery/Surgery Date I&D PERIRECTAL ABSCESS 07/26/16 Post-Op Day # Date of Admission: Jul 26, 2016 at 13:51 Hospital Day # Subjective: Patient lying in bed in no acute distress. She is ambulating well without difficulty and reports pain well controlled. Denies nausea, vomiting, constipation, chest pain, shortness of breath. Reports diarrhea. Objective Objective GEN: Patient was awake, alert, responding appropriately to questions HEENT: Pupils equal round and reactive to light, extraocular eye muscles intact , Neck soft supple, trachea midline, nomocephalic/atraumatic CV: +S1/S2, regular rate and rhythm, no murmurs auscultated Respiratory: CTAB, no wheezes, rales, rhonchi GI: +bowel sounds x4, soft, compressible, nontender to palpation, 1/2 cm perianal abscess EXT: no clubbing, cyanosis, edema Neuro: Cranial nerves II-XII grossly intact Psych: mood and affect were appropriate Incision site of right buttock was examined and wound is clean without erythema with minimal drainage, wound open roughly 12 cm L x 3.5 cm W x 2 cm. with kerlix packing and abd pad in place with brief. several small indurations superior and lateral to incision sites noted. Will coordinate with wound care for a more thorough exam. Vital Sign- Last 8 Hours Date Time Temp Pulse Resp B/P Pulse Ox O2 Delivery O2 Flow Rate FiO2 07/30/16 08:40 85 160/93 Intake and Output- Last 8 Hour 07/30/16 Cumulative From/Thru 07:00 07/26/16 11:34 - 07/30/16 06:40 Intake Total 1201 ml 9737 ml Output Total 300 ml 1504 ml Balance 901 ml 8233 ml Intake Oral 400 ml 4003 ml IV Total 801 ml 5724 ml Tube Irrigant 10 ml Output Urine Total 300 ml 1500 ml Stool Total 4 ml # Voids 10 # Bowel Movements 2 Result Diagram: 07/28/16 0647 07/30/16 0535 Assessment & Plan Impression R buttock abscess s/p I & D day #3 MRSA Diabetes Problems: Plan The patient is a 56-year-old female who has had a right medial buttocks abscess with I&D status post day #3 and MRSA positive. Continue post I&D management. - Okay for discharge from surgery standpoint. Will need very close wound care follow ups since her wound care will be difficult at home and on her own. - IV Dilaudid for dressing change while admitted. - IV acetaminophen for now. - MRSA positive. Currently on IV Unasyn and Vancomycin. Likely PO abx as outpatient for 10 days with either linezolid, doxycycline, or clindamycin. - WBC wnl, Wound care following for daily changes and assessments. Medicine team following. - HA1c 10 .9. admission BS was above 400, on insulin ggt for control. Patient states she is not diabetic and has been under stress lately. - Social work referral. Patient is primary rn coronary care unit to elderly mother. - Diabetic diet. - Hospitalist managing other medications and dispo. Resuscitation Status: CPR: Attempt Resuscitation Attending Statement: I agree with Dr. Christina's assessment and plan. ASHLEY CHRISTINA DO Jul 30, 2016 14:18 Tejas Smith MD Aug 03, 2016 09:13
--- NOTE | 2016-07-30 14:57 | PCM.PNMED ---
Subjective Date of Service Jul 30, 2016 Subjective Patient was seen and examined at bedside today. Patient denies any chest pain, shortness of breath, nausea, vomiting, diarrhea. Overnight events: None Exam Vital Signs Vital Sign - Last Date Time Temp Pulse Resp B/P Pulse Ox O2 Delivery O2 Flow Rate FiO2 07/30/16 08:40 85 160/93 07/30/16 05:26 36.6 20 100 Room Air 07/26/16 20:08 2.00 100 Intake and Output 07/29/16 07/29/16 07/30/16 Cumulative From/Thru 14:59 22:59 06:59 07/26/16 11:34 - 07/30/16 06:40 Intake Total 500 ml 1201 ml 9737 ml Output Total 600 ml 300 ml 1504 ml Balance -100 ml 901 ml 8233 ml Intake Oral 500 ml 400 ml 4003 ml IV Total 801 ml 5724 ml Tube Irrigant 10 ml Output Urine Total 600 ml 300 ml 1500 ml Stool Total 4 ml # Voids 10 # Bowel Movements 0 2 Exam Physical Exam: GEN: Patient was awake, alert, responding appropriately to questions HEENT: Pupils equal round and reactive to light, extraocular eye muscles intact , Neck soft supple, trachea midline, nomocephalic/atraumatic CV: +S1/S2, regular rate and rhythm, no murmurs auscultated Respiratory: CTAB, no wheezes, rales, rhonchi GI: +bowel sounds x4, soft, compressible, nontender to palpation Skin: Sacral abscess dressing, clean dry, and intact EXT: no clubbing, cyanosis, edema Neuro: Cranial nerves II-XII grossly intact Psych: mood and affect were appropriate IVs and Medications Medications Reviewed: Medications were reviewed in detail Lab and Diagnostics Result Diagram: 07/28/16 0647 07/30/16 0535 Assessment & Plan 56-year-old female with perianal abscess unresponsive to antibiotics and outpatient I&D and hyperglycemia Leukocytosis secondary to Perianal abscess (resolved) -White blood cell count within normal limits -Continue Unasyn -Continue vancomycin -Outpatient records review showed that the patient is MRSA positive -Patient's case was discussed today with general surgery (Dr. Abel) -Wound care following New onset diabetes (controlled) -Patient's blood glucose was 466 on admission hemoglobin A1c is 10.9 -Discontinue insulin drip -Accu-Cheks per protocol -Continue metformin 500 mg twice a day -Continue Low-dose insulin sliding scale -Continue Glipizide 5 mg twice a day -Diabetes education consult nutrition -Accu-Cheks before meals and at bedtime Hypertension (uncontrolled) -1 time dose of IV labetalol 20 mg (07/26/16) -1 time dose of Lopressor 5 mg (07/29/16) -Discontinue lisinopril to 40 mg daily (patient stated that she was developing a cough) -Increase metoprolol to 100 mg twice a day -Continue to monitor Diarrhea (resolved) -C. difficile precautions -Stool culture negative for C. difficile Hyponatremia (resolved) -Patient's sodium is currently within normal limits -Continue to monitor Obesity -Nutrition consult -Continue diabetic diet Diet: Diabetic diet DVT prophylaxis: Ambulation SCD's Disposition: Patient seems to be progressing well. Her diabetes is currently under control. Her hypertension is still uncontrolled however it seems to be trending down we will continue to monitor and make medical adjustments as needed. student services advisor has been consulted and are in the process of helping the patient to obtain insurance. If this is unable to be done and the patient will be discharged home with doxycycline 100 mg by mouth twice a day and her mother will help with wound care dressing changes. Nursing to instruct the mother on how to do the dressing changes. Patient will mostly be discharged in the next 1-2 days. Code Status: Full code VTE Mechanical Devices: Intermittant Pneumatic CD Resuscitation Status: CPR: Attempt Resuscitation Flakita Kumar DO Jul 30, 2016 14:57
[2016-07-30 15:01] VITALS: BP 154/82; PULSE 74; RESP 17; O2SAT 98
[2016-07-30 15:39] VITALS: BP 152/75; PULSE 78
[2016-07-30 19:40] VITALS: BP 162/82; PULSE 78; RESP 16; O2SAT 98
--- NOTE | 2016-07-31 02:22 | NUR ---
IV Site Pain Patient complaining of pain 8/10 on pain scale at IV site right hand. No sign of infiltration or phlebitis. Flushed line with NS x2. Hot pack applied to site and wrapped in warm towel. VSS. Call light within reach. Care continues.
[2016-07-31] MEDS: Ampicillin-Sulbactam Inj 1,500 MG in 0.9% Sodium Chloride 50 ML IV SCH ×3 (02:42→08:05)
[2016-07-31] MEDS: Vancomycin Inj 1,250 MG in 0.9% Sodium Chloride 250 ML IV SCH (04:05)
[2016-07-31 05:48] VITALS: BP 184/96; PULSE 81; RESP 16; O2SAT 99
[2016-07-31 06:13] LABS: Mean Corpuscular Hemoglobin 29.4 pg (27.0-35.0); Mean Corpuscular Volume 86.9 fL (81-100)
[2016-07-31] MEDS: Insulin LISPRO 300 Unit/3 mL Inj SUBQ SCH ×2 (09:19→12:00)
[2016-07-31 09:33] VITALS: BP 163/83; PULSE 72; RESP 12; O2SAT 99
--- NOTE | 2016-07-31 11:24 | NUR ---
Social Work-readiness for discharge: Data:EMR reviewed. Pt is on day 5 of hospitalization for perirectal abscess per H&P. Pt may be medically stable later today or tomorrow. GABRIELLE called [facility] and left another message for pt. GABRIELLE called [facility] wound care center and spoke with Kelly. Kelly confirms they can accept pt's without insurance and have paty care as well as sliding scale. GABRIELLE arranged appointment for pt for Tuesday 08/01 at 1030. SW updated pt with information about wound care appointment and also provided her with paty care application. Pt's family to provide transport home. SW will continue to follow. Assessment:Pt who independent at baseline. Plan:Pt to discharge home when medically stable via POV. Wound care follow up appointment scheduled Tuesday 08/01 at 1030. Paty Care application provided.GABRIELLE will continue to follow. ALICIA Velez
[2016-07-31] MEDS ORDERED: GLPZ5T PO (12:50)
[2016-07-31] MEDS ORDERED: HYDR25TA4 PO (12:50)
[2016-07-31] MEDS ORDERED: METF500T PO (12:50)
[2016-07-31] MEDS ORDERED: [UNRECOGNIZED DRUG - CODE] MC (12:50)
[2016-07-31] MEDS ORDERED: METO100T3 PO (12:50)
[2016-07-31] MEDS ORDERED: LANC1COM MC (12:50)
--- NOTE | 2016-07-31 12:57 | PCM.DIMED ---
Discharge Instructions Date of Service Jul 31, 2016 Dates of Hospitalization Jul 26, 2016 at 13:51 Discharge Diagnosis Discharge Diagnosis Perianal abscess Diabetes type II Hypertension MRSA Medication Instructions Please take your medications as prescribed. Please check your blood glucose 2-3 times a day and keep a record of this please take this information to your primary care doctor for further management of your blood glucose. It is very important to maintain good blood glucose control so that it will help with your wound healing. If you have blood pressure cuff at home please take your blood pressure throughout the day and keep a record of this bring this to your primary care physician office and they will be able to help better manage her high blood pressure. He will also been given doxycycline 100 mg to take twice a day for the next 10 days. Diet Heart Healthy, Diabetic Activity No restrictions Call your provider Fever or Chills, Shortness of breath, Chest pain, Weakness (unilateral) Patient Instructions Please follow the recommendations made by the dietitian for diabetes. Please follow up at the wound clinic 3 times a week until they can be further instructions. Please do your dressing changes daily. Follow-up Provider: Rakan Rodriguez DO Follow-up with PCP in: 1 week (You have an appointment on 08/13/2016 at 7:30 AM please call [phone] for further instructions or if you have any questions) Follow-up in: 1 week (you have an appointment with the wound clinic tomorrow at 10:30.) Flakita Kumar DO Jul 31, 2016 12:57
--- NOTE | 2016-07-31 13:37 | NUR ---
Social Work - Discharge: Data: EMR reviewed. Pt is on day 5 of hospitalization for perirectal abscess per her H&P. Pt is medically stable for discharge today. GABRIELLE confirmed readiness for pt to go home with outpatient wound care at [facility]. Pt will receive wound care every 3 days. GABRIELLE scheduled appointment with [facility] for 08/01 at 1030am. Pt to discharge home today via POV transport from [facility]. All updated and agreeable to plan. Assessment: Pt who is independent at baseline. Plan: Pt to discharge home today via POV. Pt scheduled for wound care appointment on at 1030 on 08/01 at [facility]. ALICIA Baldwin
[2016-07-31 13:50] VITALS: BP 144/91; PULSE 80; RESP 14; O2SAT 100
[2016-07-31] MEDS ORDERED: Vancomycin Serum Trough XX ONE (14:00)
--- NOTE | 2016-07-31 14:26 | NUR ---
Discharge Pt discharged at 1415 in w/c to private vehicle with family. Pt has no c/o pain other than with dressing change and is A&O x 3, MARTINEZ, VSS. BP checked prior to discharge and has decreased to safe level. New dressing applied prior to discharge by SN Vashti with supervision. Dressing supplies sent home with pt and she is aware of follow up appt with wound care tomorrow. IV removed intact, mildly red and painful. Pt has discharge instructions, care notes and all rx's. All questions answered and has all belongings.
[2016-07-31] MEDS ORDERED: Vancomycin Inj 1,250 MG in 0.9% Sodium Chloride 250 ML IV SCH (14:30)
--- NOTE | 2016-07-31 15:03 | PCM.DC.MED ---
Discharge Summary Date of Service Jul 31, 2016 Dates of Hospitalization Date of Hospital Admission Jul 26, 2016 at 13:51 Date of Discharge: Jul 31, 2016 Providers: Admitting Physician: Flakita Kumar DO Primary Care Physician: Nicole Attending Physician: Flakita Kumar DO Diagnosis at Time of Discharge Diagnosis at Time of Discharge Perianal abscess Diabetes type II Hypertension MRSA Hospital Course 56-year-old female with perianal abscess unresponsive to antibiotics and outpatient I&D and hyperglycemia The patient presented for a period abscess that was unresponsive to antibiotics. The patient was taken for an I&D of the abscess on 07/26/2016. The abscess was significant according to general surgery. The patient had the area I&D and then it was packed for wound care. The patient is to have the dressing changed daily. Ideally the patient will have this dressing change done at the wound clinic however the patient does not have insurance and is self -pay. The patient's mother has been instructed on how to do the dressing changes and the patient will follow up with wound care 3 times a week. The wound care clinic stated that they would be able to see her on a marilin case basis. The patient is being discharged on doxycycline 100 mg by mouth twice a day for the next 10 days. The patient was diagnosed with both diabetes type II and hypertension during this stay. The patient was very reluctant to accept these diagnoses stating that her blood glucose was elevated secondary to stress in that her hypertension was secondary to white coat syndrome. The patient had blood pressures that were as high as 200s systolics over 100 diastolics in her hemoglobin A1c was 10.9. This was explained to the patient that these numbers are not secondary to stress but secondary to hypertension and diabetes and she is very reluctant to accept this. The patient did take all prescribed medications but there is concern that the patient will be noncompliant as an outpatient. The patient did start to have some bouts of diarrhea which may be secondary to the metformin and she was placed on 500 twice a day dose. The patient's blood glucose was more well controlled using both metformin and glyburide with morning blood glucoses of 115. The patient has been prescribed a blood glucose monitor with lancets and test strips and encouraged to record her blood glucose throughout the day and bring this information into her PCPs office for review and help with better management of blood glucose. At this time social work is still working on helping the patient to get insurance. The patient has been instructed that when the Medicaid services call her that she needs to be honest with them and actually give him information in regards to her finances so that they are able to process her paperwork and get her insurance. She applied previously however was reluctant to give him any information and that is what she was denied medical insurance. The patient states that she understands and will comply this time and give them the information needed to obtain insurance. The patient is being discharged home in stable condition Leukocytosis secondary to Perianal abscess (resolved) -White blood cell count within normal limits -Continue Unasyn -Continue vancomycin -Outpatient records review showed that the patient is MRSA positive -Patient's case was discussed today with general surgery (Dr. Abel) -Wound care following New onset diabetes (controlled) -Patient's blood glucose was 466 on admission hemoglobin A1c is 10.9 -Discontinue insulin drip -Accu-Cheks per protocol -Continue metformin 500 mg twice a day -Continue Low-dose insulin sliding scale -Continue Glipizide 5 mg twice a day -Diabetes education consult nutrition -Accu-Cheks before meals and at bedtime Hypertension (uncontrolled) -1 time dose of IV labetalol 20 mg (07/26/16) -1 time dose of Lopressor 5 mg (07/29/16) -Discontinue lisinopril to 40 mg daily (patient stated that she was developing a cough) -Increase metoprolol to 100 mg twice a day -Continue to monitor Diarrhea (resolved) -C. difficile precautions -Stool culture negative for C. difficile Hyponatremia (resolved) -Patient's sodium is currently within normal limits -Continue to monitor Obesity -Nutrition consult -Continue diabetic diet Diet: Diabetic diet DVT prophylaxis: Ambulation SCD's Disposition: Patient seems to be progressing well. Her diabetes is currently under control. Her hypertension is still uncontrolled however it seems to be trending down we will continue to monitor and make medical adjustments as needed. administrative services officer has been consulted and are in the process of helping the patient to obtain insurance. If this is unable to be done and the patient will be discharged home with doxycycline 100 mg by mouth twice a day and her mother will help with wound care dressing changes. Nursing to instruct the mother on how to do the dressing changes. Patient will mostly be discharged in the next 1-2 days. Code Status: Full code Exam Vital Signs (Last) Date Time Temp Pulse Resp B/P Pulse Ox O2 Delivery O2 Flow Rate FiO2 07/31/16 13:50 36.3 80 14 144/91 100 Room Air 07/26/16 20:08 2.00 100 Exam Physical Exam: GEN: Patient was awake, alert, responding appropriately to questions HEENT: Pupils equal round and reactive to light, extraocular eye muscles intact , Neck soft supple, trachea midline, nomocephalic/atraumatic CV: +S1/S2, regular rate and rhythm, no murmurs auscultated Respiratory: CTAB, no wheezes, rales, rhonchi GI: +bowel sounds x4, soft, compressible, nontender to palpation Skin: Site of abscess dressing was clean dry and intact EXT: no clubbing, cyanosis, edema Neuro: Cranial nerves II-XII grossly intact Psych: mood and affect were appropriate Test 07/26/16 12:08 07/26/16 12:16 07/27/16 05:58 07/28/16 22:55 Neutrophils (%) (Auto) 78.0% (40-74) Lymphocytes (%) (Auto) 11.5% (14-46) Monocytes (%) (Auto) 7.0% (4-12) Eosinophils (%) (Auto) 1.1% (0-5) Basophils (%) (Auto) 0.4% (0-3) Lipase 15U/L (13-60) Hold Forbes Top Tube Received (Received) Hemoglobin A1c 10.8% (4.8-5.6) Urine Color Yellow (YELLOW) Urine Appearance Clear (CLEAR,HAZY) Urine pH 7.0 (5.0-8.0) Urine Specific [place] 1.020 (1.003-1.035) Urine Protein Negativemg/dL (NEG,TRACE) Urine Glucose (UA) 500mg/dL (NEGATIVE) Urine Ketones 15mg/dL (NEGATIVE) Urine Occult Blood Negative (NEGATIVE) Urine Nitrite Negative (NEGATIVE) Urine Bilirubin Negative (NEGATIVE) Urine Urobilinogen Normalmg/dL (NORMAL) Urine Leukocyte Esterase Negative (NEGATIVE) Urine RBC 0-2/hpf (0-2) Urine WBC 0-5/hpf (0-5) Urine Epithelial Cells Few/hpf (NONE-MOD) Urine Crystals None seen (NONE SEEN) Urine Bacteria Few/hpf (NONE-FEW) Urine Hyaline Casts None/lpf (NONE) Urine Granular Casts None seen (NONE SEEN) Urine Waxy Casts None seen (NONE SEEN) Urine Red Blood Cell Casts None seen (NONE SEEN) Urine White Blood Cell Casts None seen (NONE SEEN) Urine Mucus None seen (None Seen) Urine Trichomonas None seen (NONE SEEN) Urine Yeast None (NONE SEEN) Urinalysis Comment None Urine Culture Reflexed Not indicated Test 07/29/16 11:45 07/31/16 05:53 Vancomycin Level Trough 11.2mcg/mL White Blood Count 6.5th/mm3 (3.8-10.1) Red Blood Count 4.49mil/mm3 (3.90-5.20) Hemoglobin 13.2g/dL (12.0-15.6) Hematocrit 39.0% (35.0-46.0) Mean Corpuscular Volume 86.9fL (81-100) Mean Corpuscular Hemoglobin 29.4pg (27.0-35.0) Mean Corpuscular Hemoglobin Concent 33.8% (32.0-37.0) Red Cell Distribution Width 13.4% (12.3-15.4) Platelet Count 335bil/L (150-400) Sodium Level 141mEq/L (134-144) Potassium Level 4.0mEq/L (3.5-5.2) Chloride Level 103mEq/L (97-108) Carbon Dioxide Level 24mmol/L (18-29) Blood Urea Nitrogen 10mg/dL (6-24) Creatinine 0.55mg/dL (0.57-1.00) Estimat Glomerular Filtration Rate 163mL/min (>59) Glucose Level 145mg/dL (60-99) Calcium Level 8.8mg/dL (8.5-10.1) Total Bilirubin 0.4mg/dL (0.0-1.2) Aspartate Amino Transf (AST/SGOT) 28U/L (0-50) Alanine Aminotransferase (ALT/SGPT) 26U/L (0-32) Alkaline Phosphatase 43U/L (25-150) Total Protein 6.7g/dL (6.4-8.4) Albumin 3.2g/dL (3.4-5.0) Procalcitonin 0.04ng/mL (0.00-0.08) Discharge Medications Discharge Medications Glipizide (Glipizide) 5 Mg Tablet 5 MG PO BIDAC Prescribed by: FLAKITA KUMAR DO Hydrochlorothiazide (Hydrochlorothiazide) 25 Mg Tablet 50 MG PO DAILY Prescribed by: FLAKITA KUMAR DO Metformin (Glucophage) 500 Mg Tablet 500 MG PO BIDWM Prescribed by: FLAKITA KUMAR DO Metoprolol Tartrate (Metoprolol Tartrate) 100 Mg Tablet 100 MG PO BID Prescribed by: FLAKITA KUMAR DO As needed ([[place]]) 1 CAPSULE PO HS PRN PRN For Insomnia (Reported) Ibuprofen (Advil) 200 Mg Capsule 600 MG PO BID PRN PRN For Pain (Reported) Tramadol (Ultram) 50 Mg Tablet 50 MG PO Q4H PRN PRN Pain (Reported) Durable Medical Equipment Blood-Glucose Meter (Accu-Chek Guide Monitor System) 1 Each Each 1 EACH [facility] (DME) Prescribed by: FLAKITA KUMAR DO Lancets/Blood Glucose Strips (Fora [id number] Lanct-Str) 30 Gauge Combo..pkg 1 EACH [facility] (DME) Prescribed by: FLAKITA KUMAR DO Additional med instructions Please take your medications as prescribed. Please check your blood glucose 2-3 times a day and keep a record of this please take this information to your primary care doctor for further management of your blood glucose. It is very important to maintain good blood glucose control so that it will help with your wound healing. If you have blood pressure cuff at home please take your blood pressure throughout the day and keep a record of this bring this to your primary care physician office and they will be able to help better manage her high blood pressure. He will also been given doxycycline 100 mg to take twice a day for the next 10 days. Followup Plan Discharge Diet: Heart Healthy, Diabetic Discharge Activity: No restrictions Patient Instructions Please follow the recommendations made by the dietitian for diabetes. Please follow up at the wound clinic 3 times a week until they can be further instructions. Please do your dressing changes daily. Follow-up Provider: Rakan Rodriguez DO Follow-up with PCP in: 1 week (You have an appointment on 08/13/2016 at 7:30 AM please call [phone] for further instructions or if you have any questions) Follow-up in: 1 week (you have an appointment with the wound clinic tomorrow at 10:30.) Time spent Greater than 35 minutes copies to: Rakan Rodriguez Precious L DO Jul 31, 2016 15:03
--- NOTE | 2016-08-01 17:36 | NUR ---
[facility] CALL Pt states that she is doing very well, feeling good other than the wound that was worked on today. Pt states that her BS are WNL and that she was able to obtain a glucometer, strips and lancets after discharge. Pt has no questions at this time.
== END 2016-07-31 14:10 | disposition home or self-care (01) | DRG 580 ==
LOC: SED 11:25 → OSC 13:51
PROVIDERS: ADMIT Neuromusculoskeletal Medicine & OMM; ATTEND Neuromusculoskeletal Medicine & OMM
PROC: 0J990ZZ Drainage of Buttock Subcutaneous Tissue and Fascia, Open Approach (ICD-10-PCS; principal; 2016-07-26 16:00)
DX: L02.31 Cutaneous abscess of buttock (principal); E87.1 Hypo-osmolality and hyponatremia; D72.829 Elevated white blood cell count, unspecified; E11.65 Type 2 diabetes mellitus with hyperglycemia; I10 Essential (primary) hypertension; Z51.5 Encounter for palliative care; B95.62 Methicillin resistant Staphylococcus aureus infection as the cause of diseases classified elsewhere; E66.09 Other obesity due to excess calories; R19.7 Diarrhea, unspecified; Z68.35 Body mass index [BMI] 35.0-35.9, adult